=== PATIENT | male | born 1965 | race Caucasian/White ===

== ENCOUNTER 2017-07-08 05:28 | Day surgery (SDC) | payer BC ==
[2017-07-07 09:10] VITALS: BP 137/99
[~2017-07-08] VITALS: Ht 177.8 cm; Wt 76.1 kg
[~2017-07-08 05:28] MED LIST: None per pt
[2017-07-08] MEDS ORDERED: LIDOCAINE/PF 1.5%-EPI 1:200K, 30ML ONE (05:59)
[2017-07-08] MEDS ORDERED: BUPIVACAINE/PF 0.5% ONE (05:59)
[2017-07-08] MEDS ORDERED: EPINEPHRINE 1 MG/ML, 1ML ONE (06:00)
[2017-07-08] MEDS ORDERED: LACTATED RINGERS 1,000 ML IV SCH (06:04)
[2017-07-08 06:05] VITALS: BP 137/99
[2017-07-08] MEDS ORDERED: LIDOCAINE 1%, 2ML SQ PRN (06:30)
[2017-07-08] MEDS ORDERED: MIDAZOLAM 1 MG/ML, 2ML ONE (06:32)
[2017-07-08] MEDS ORDERED: FENTANYL PF 100 MCG/2ML ONE ×2 (06:32→07:24)
[2017-07-08] MEDS ORDERED: KETOROLAC 30 MG/1 ML ONE (06:44)
[2017-07-08] MEDS ORDERED: CEFAZOLIN 1,000 MG ONE (06:44)
[2017-07-08] MEDS ORDERED: PROPOFOL 10 MG/ML, 20ML ONE (06:44)
[2017-07-08] MEDS ORDERED: DEXAMETHASONE 4 MG/ML, 1ML ONE (06:44)
[2017-07-08] MEDS ORDERED: ONDANSETRON 2MG/ML, 2ML ONE (06:44)
[2017-07-08] MEDS ORDERED: BUPIVACAINE/PF-EPI 0.5% 1:200K INFIL ONE (06:48)
[2017-07-08] MEDS ORDERED: OXYcodone 5 MG/5 ML ORAL.SOL UDC PO PRN (07:00)
[2017-07-08] MEDS ORDERED: MIDAZOLAM 1 MG/ML, 2ML IV PRN (07:00)
[2017-07-08] MEDS ORDERED: ALBUTEROL/IPRATROPIUM 2.5MG/0.5MG, 3 ML NPPB PRN (07:00)
[2017-07-08] MEDS ORDERED: METOCLOPRAMIDE 5 MG/ML, 2ML IV PRN (07:00)
[2017-07-08] MEDS ORDERED: ACETAMINOPHEN 325 MG TABLET PO PRN (07:00)
[2017-07-08] MEDS ORDERED: hydrALAzine 20 MG/ML, 1ML IV PRN (07:00)
[2017-07-08] MEDS ORDERED: HYDROmorphone 1 MG/ML, 1ML IV PRN (07:00)
[2017-07-08] MEDS ORDERED: ONDANSETRON 2MG/ML, 2ML IVPush PRN (07:00)
[2017-07-08] MEDS ORDERED: LABETALOL 5MG/ML, 20ML IV PRN (07:00)
[2017-07-08] MEDS ORDERED: PROMETHAZINE 25 MG/ML, 1ML IV PRN (07:00)
[2017-07-08] MEDS ORDERED: MEPERIDINE/PF 25MG/0.5ML IVPush PRN (07:00)
[2017-07-08] MEDS ORDERED: OXYcodone 5 MG/5 ML ORAL.SOL UDC ONE (07:24)
[2017-07-08] MEDS ORDERED: ACETAMINOPHEN 650 MG/20.3 ML UDC ONE (07:25)
[2017-07-08] MEDS: FENTANYL PF 100 MCG/2ML IV PRN ×2 (07:26→07:44)
== END 2017-07-08 08:55 ==
LOC: OR 05:28 → OUT 08:55
PROVIDERS: ATTEND Orthopaedic Surgery
DX: S83.282A Other tear of lateral meniscus, current injury, left knee, initial encounter (principal); M65.862 Other synovitis and tenosynovitis, left lower leg; M17.12 Unilateral primary osteoarthritis, left knee; X58.XXXA Exposure to other specified factors, initial encounter; Y93.89 Activity, other specified; Y92.89 Other specified places as the place of occurrence of the external cause; Y99.8 Other external cause status
CPT/HCPCS: 29881; J0171; J0690; J1100; J1885; J2250; J2405; J2704; J3010; J3490; J7120